=== PATIENT | female | born 1965 | race Caucasian/White ===

== ENCOUNTER → 2017-01-24 | Day surgery (SDC) | payer OTHER ==
[2017-01-23 16:05] VITALS: BMI 39.9
[~2017-01-24] MED LIST: BUPIVACAINE HCL/PF 0.5% (5MG/ML) 10 ML VIAL IJ ONE; BUPIVACAINE HCL/PF 0.5% (5MG/ML) 10 ML VIAL ONE; DEXAMETHASONE SOD PHOSPHATE 4 MG/1 ML VIAL ONE; ENOXAPARIN NA (PORCINE) 40 MG/0.4 ML DISP.SYRIN SQ ONE; FAMOTIDINE 20 MG/50 ML IVPB 50 ML IVPB SCH; FAMOTIDINE/PF 20 MG/12 ML PUSH IVPUSH SCH; HYDROmorphone HCL CARPU-JECT 1 MG/1 ML DISP.SYRIN IVPB PRN; KETOROLAC TROMETHAMINE 30 MG/1 ML VIAL ONE; LACTATED RINGERS SOLUTION 1,000 ML IV SCH; MIDAZOLAM HCL 2 MG/2 ML SINGLE DOSE VIAL ONE; ONDANSETRON 4 MG/2 ML VIAL IVPUSH PRN; PROMETHAZINE HCL 25 MG/1 ML VIAL IVPUSH PRN; PROMETHAZINE HCL 25 MG/1 ML VIAL ONE; PROMETHAZINE HCL 50 MG/1 ML AMP IM PRN; ROPIVACAINE HCL 0.5% 30ML VIAL ONE; SODIUM CHLORIDE 1,000 ML IV SCH; ceFAZolin SODIUM 1 GM VIAL IVPB ONE; ceFAZolin SODIUM 1 GM VIAL ONE; oxyCODONE HCL 5 MG TABLET PO PRN
--- NOTE | 2017-01-24 16:22 | OP ---
DATE OF OPERATION: 01/24/2017 PREOPERATIVE DIAGNOSIS: Umbilical hernia. POSTOPERATIVE DIAGNOSES: 1. Incarcerated umbilical hernia. 2. Necrotic omentum. 3. Abdominal adhesions. PROCEDURE PERFORMED: 1. Repair of incarcerated umbilical hernia. 2. Partial omentectomy. 3. Lysis of adhesions. OPERATING SURGEON: Daniel Ayon MD RECREATION THERAPY DIRECTOR: Demetris Gonzalez MD ANESTHESIA: General. EXPECTED BLOOD LOSS: 50 mL DISPOSITION: Patient transferred to recovery room in stable condition. DESCRIPTION OF OPERATIVE PROCEDURE: The patient was brought into the operating room, placed on the OR table in supine position. All precautions were taken initially including padding for the back, and Venodyne boots were placed on both lower extremities. At that point, the abdomen was prepped and draped in the usual manner. Patient noted to have a large, moderate-sized umbilical hernia; so, an incision was made in the subumbilical space in a curvilinear direction. The incision was carried down through the skin and through the subcutaneous tissue with electrocautery. Upon reaching that, the mass was felt and felt to be large in extent. The adhesions between the hernia sac and the subcutaneous tissue were lysed until the skin was now free of the hernia sac. The hernia sac was opened and it was split and the hernia sac was peeled off of the mass underneath which appeared to be omentum. The hernia sac was peeled all the way down to the opening going into the fascia, into the abdomen. With the omentum now in full view, the omentum was incarcerated and could not be returned to the abdominal cavity. Also, because it had been incarcerated for quite some time, it was bruised and felt that it would not be healthy; so, therefore, it needed to be resected. The LigaSure device was used to dissect the omentum just above the returning into the abdominal cavity, and it was sent off the field to Pathology as a specimen. At this juncture, the hernia sac was opened and then this was sewn at its neck of the sac and then the sac was amputated and sent off the field to Pathology as specimen. At this point, the remaining small amount of hernia sac and the omentum were returned into the abdominal cavity. Attention was now directed to the adhesions between the sac and the undersurface of the fascia which prevented the closure at the time. With assistance from the automotive parts counter assistant surgeon retracting the fascia, the operating surgeon was able to dissect the hernia sac off the undersurface of the fascia going into the abdomen. This was done in a circumferential direction until all the fascia for about 1.5 cm was cleaned of all scar tissue. At this point, closure was performed with 0 Vicryl in an interrupted fashion transversely on the hernia. Once this was completed, the hernia repair was intact, and now, closure was done with 3-0 Vicryl on the subcutaneous tissue, followed by closure of the skin with 4-0 Biosyn in subcuticular fashion. Dressings were applied. Patient awoke from anesthesia and transferred out of the operating room to the recovery room in stable condition. Nimo [id number]
[2017-01-24 16:27] LABS: MCH 30.1 pg (25.7-33.7); MCHC 33.7 g/dl (32.0-36.0); MEAN CELL VOLUME 89.3 fl (80-96); MEAN PLT VOLUME 7.5 fl (7.5-11.1); PLATELET COUNT 253 K/MM3 (134-434); RDW 14.3 % (11.6-15.6); WHITE BLOOD COUNT 12.5 K/mm3 (4.0-10.0)
[2017-01-24 16:54] LABS: ANION GAP 6 (8-16); CALCIUM 8.6 mg/dL (8.5-10.1); CO2 29 mmol/L (21-32); CREATININE 0.6 mg/dL (0.55-1.02); GLUCOSE,RANDOM 115 mg/dL (74-106)
[2017-01-24 17:48] VITALS: TEMP 98.3
[2017-01-24 19:19] VITALS: BP 124/76; PULSE 83
--- NOTE | 2017-01-28 15:17 | PATH ---
Surgical Pathology Report Patient Name: BIBI DELUNA [facility]. Rec. #: [id number] /Age/Gender: 1965 (Age: 51) / F Account: [id number] Location: [facility] SURGICAL Taken: 01/24/2017 Received: 01/25/2017 Reported: 01/28/2017 Physicians: Daniel Ayon M.D. Specimen(s) Received A: OMENTUM B: HERNIA SAC Clinical History Umbilical hernia Final Diagnosis A. SOFT TISSUE, ABDOMINAL, EXCISION: BENIGN ADIPOSE TISSUE WITH ADMIXED BLOOD VESSELS CONSISTENT WITH PORTION OF OMENTUM. B. SOFT TISSUE, UMBILICAL, EXCISION: FIBROMEMBRANOUS TISSUE CONSISTENT WITH HERNIA SAC. Electronically Signed Jacoby Barclay M.D. Gross Description A. Received in formalin labeled "omentum," is a 9.0 x 8.3 x 2.2 cm portion of yellow, lobulated adipose tissue, consistent with a portion of omentum. Sectioning reveals unremarkable yellow, smooth fat. No lesions are identified. Insurance Office [employer] sections are submitted in one cassette. B. Received in formalin labeled "hernia sac," is a 5.2 x 2.3 x 1.5 cm brown-cook, irregular portion of fibromembranous tissue, consistent with a hernia sac. The specimen displays minimal attached fat. Sectioning reveals focally firm fibrous tissue with hemorrhage. [employer] Office [employer] sections are submitted in one cassette. 01/25/201701/25/2017
== END | disposition home or self-care (01) ==
LOC: JASU-SURG 10:55 → EDSTATUS 14:00
PROVIDERS: ATTEND Surgery
PROC: 0DBU0ZZ Excision of Omentum, Open Approach (ICD-10-PCS; 2017-01-24)
PROC: 0WQF0ZZ Repair Abdominal Wall, Open Approach (ICD-10-PCS; principal; 2017-01-24 12:15)
DX: K42.0 Umbilical hernia with obstruction, without gangrene (principal); K66.0 Peritoneal adhesions (postprocedural) (postinfection)
CPT/HCPCS: 36415; 80048; 84703; 85027; 86850; 86900; 86901; 88302-TC; 94010; 94760

== ENCOUNTER 2020-09-29 07:56 | Day surgery (SDC) | payer BC ==
[2020-09-22 15:33] VITALS: BMI 43.2
[2020-09-29] MEDS ORDERED: PROPOFOL 20 ML ONE ×2 (08:05)
[2020-09-29 08:25] VITALS: TEMP 98
[2020-09-29 10:07] VITALS: BP 132/80; PULSE 66
== END 2020-09-29 10:07 | disposition home or self-care (01) ==
LOC: FASU-ENDO 07:56
PROVIDERS: ATTEND Internal Medicine Gastroenterology
PROC: 0DJD8ZZ Inspection of Lower Intestinal Tract, Via Natural or Artificial Opening Endoscopic (ICD-10-PCS; principal; 2020-09-29 09:04)
DX: Z12.11 Encounter for screening for malignant neoplasm of colon (principal); Z83.71 Family history of colonic polyps; K57.30 Diverticulosis of large intestine without perforation or abscess without bleeding